=== PATIENT | male | born 1990 | race Caucasian/White ===

== ENCOUNTER 2017-05-15 01:41 | Emergency (ER) | payer BC, OTHER ==
[~2017-05-15] VITALS: Ht 172.7 cm; Wt 70.3 kg
[~2017-05-15 01:41] MED LIST: HYDR1CAP2 PO; SULF1TAB38 PO
--- OUTSIDE RECORDS SUMMARY | 2017-05-15 01:49 | XMS REPORT | Continuity of Care Document ---
Demographics Preferred Language Unknown Marital Status Unknown Lutheran Affiliation Unknown Race Unknown Ethnic Group Unknown Author Author [facility] Address Unknown Phone Unavailable Allergies There is no data. Medications There is no data. Problems Date Dx Coded Attending Type Code Diagnosis Diagnosed By 01/04/2012 524.60 TMJ 01/04/2012 525.9 TOOTH PAIN 01/04/2012 782.3 EDEMA Procedures There is no data. Results There is no data. Encounters ACCT No. Visit Date/Time Discharge Status Pt. Type Provider Facility Loc./Unit Complaint [id number] 01/04/2012 14:28:00 01/04/2012 23:59:59 CLS Outpatient
[2017-05-15 03:10] LABS: BASOPHILS % (AUTO) 0 % (0-10); EOSINOPHILS # (AUTO) 0.1 10^3/uL (0.0-0.3); EOSINOPHILS % (AUTO) 1 % (0-10); HEMATOCRIT 40 % (40-54); HEMOGLOBIN 14.6 G/DL (13.3-17.7); LYMPHOCYTES # (AUTO) 2.3 X 10^3 (1.0-4.0); LYMPHOCYTES % (AUTO) 18 % (12-44); MEAN CORPUSCULAR HEMOGLOBIN 33 PG (25-34); MEAN CORPUSCULAR HGB CONC 37 G/DL (32-36); MEAN CORPUSCULAR VOLUME 88 FL (80-99); MEAN PLATELET VOLUME 10.2 FL (7.4-10.4); MONOCYTES % (AUTO) 8 % (0-12); NEUTROPHILS # (AUTO) 9.1 X 10^3 (1.8-7.8); NEUTROPHILS % (AUTO) 73 % (42-75); PLATELET COUNT 278 10^3/uL (130-400); RED BLOOD COUNT 4.48 10^6/uL (4.35-5.85); RED CELL DISTRIBUTION WIDTH 12.8 % (10.0-14.5); WHITE BLOOD COUNT 12.5 10^3/uL (4.3-11.0)
[2017-05-15 03:35] LABS: ALBUMIN 4.4 GM/DL (3.2-4.5); ALKALINE PHOSPHATASE 67 U/L (40-136); BILIRUBIN,TOTAL 1.1 MG/DL (0.1-1.0); BUN/CREATININE RATIO 13; CALCIUM 9.5 MG/DL (8.5-10.1); CARBON DIOXIDE 24 MMOL/L (21-32); CHLORIDE 104 MMOL/L (98-107); CREATININE SERUM 0.93 MG/DL (0.60-1.30); GFR ESTIMATED > 60; GLUCOSE 101 MG/DL (70-105); POTASSIUM 3.5 MMOL/L (3.6-5.0); SODIUM 138 MMOL/L (135-145); TOTAL PROTEIN 6.7 GM/DL (6.4-8.2)
[2017-05-15 03:51] LABS: ALANINE AMINOTRANSFERASE 19 U/L (0-55)
[2017-05-15] MEDS ORDERED: KETOROLAC 30 MG/ML VIAL IVP STA (04:07)
[2017-05-15] MEDS ORDERED: CLINDAMYCIN 900 MG/50 ML IVPB 50 ML IV ONE (04:15)
[2017-05-15] MEDS ORDERED: TETANUS,DIPTH,PERTUSS P/F (BOOSTRIX) 0.5 ML VIAL IM ONE (04:15)
[2017-05-15] MEDS ORDERED: NAPR-915 PO (04:19)
[2017-05-15] MEDS ORDERED: LACT1CAP8 PO (04:19)
[2017-05-15] MEDS ORDERED: CLIN300C11 PO (04:19)
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
[2017-05-15 05:21] VITALS: BP 131/92
--- NOTE | 2017-05-15 06:39 | Diagnostic Imaging Report ---
INDICATION: Right hand swelling Three views of the right hand show no fracture, dislocation or radiopaque foreign object. IMPRESSION: Negative right hand Dictated by: Dictated on workstation # [id number]
== END 2017-05-15 05:18 | disposition home or self-care (01) ==
LOC: EDUNIT# 01:41 → ER 01:45
DX: L03.113 Cellulitis of right upper limb (principal); F17.210 Nicotine dependence, cigarettes, uncomplicated; Z87.19 Personal history of other diseases of the digestive system; Z23 Encounter for immunization
CPT/HCPCS: 36415; 73130; 80053; 83605; 85025; 87040; 90471; 90715; 96365; 96375

== ENCOUNTER 2020-07-01 18:30 | Observation (INO) | payer SELFPAY ==
[~2020-07-01] VITALS: Ht 170 cm; Wt 69.5 kg
[~2020-07-01 18:30] MED LIST changes: +CLIN300C12 PO; +LACT1CAP8 PO; +NAPR-915 PO
[2020-07-01 18:58] LABS: BILIRUBIN,URINE NEGATIVE (NEGATIVE); CLARITY,URINE CLEAR; COLOR,URINE YELLOW; GLUCOSE, URINE (UA) NEGATIVE (NEGATIVE); KETONES,URINE 3+ (NEGATIVE); LEUKOCYTE ESTERASE ,URINE NEGATIVE (NEGATIVE); NITRITE,URINE NEGATIVE (NEGATIVE); PH,URINE 6.5 (5-9); PROTEIN,URINE NEGATIVE (NEGATIVE)
[2020-07-01 18:58] LABS: BASOPHILS % (AUTO) 0 % (0-10); EOSINOPHILS % (AUTO) 0 % (0-10); HEMATOCRIT 42 % (40-54); HEMOGLOBIN 15.3 g/dL (13.3-17.7); LYMPHOCYTES # (AUTO) 1.4 10^3/uL (1.0-4.0); LYMPHOCYTES % (AUTO) 16 % (12-44); MEAN CORPUSCULAR HEMOGLOBIN 33 pg (25-34); MEAN CORPUSCULAR HGB CONC 37 g/dL (32-36); MEAN CORPUSCULAR VOLUME 90 fL (80-99); MEAN PLATELET VOLUME 10.2 fL (9.0-12.2); MONOCYTES # (AUTO) 0.8 10^3/uL (0.0-1.0); MONOCYTES % (AUTO) 9 % (0-12); NEUTROPHILS # (AUTO) 6.5 10^3/uL (1.8-7.8); NEUTROPHILS % (AUTO) 74 % (42-75); PLATELET COUNT 302 10^3/uL (130-400); WHITE BLOOD COUNT 8.8 10^3/uL (4.3-11.0)
[2020-07-01 19:04] LABS: BACTERIA,URINE TRACE /HPF; HYALINE CASTS, URINE 0-2 /LPF; SQUAMOUS EPITHELIAL CELL,UR RARE /HPF
[2020-07-01 19:07] LABS: ALBUMIN 4.9 GM/DL (3.2-4.5); CHLORIDE 102 MMOL/L (98-107); POTASSIUM 3.5 MMOL/L (3.6-5.0); SODIUM 136 MMOL/L (135-145)
[2020-07-01 19:08] LABS: AMPHETAMINE SCREEN, URINE POSITIVE (NEGATIVE); BARBITURATE SCREEN URINE NEGATIVE (NEGATIVE); BENZODIAZEPINES SCREEN URINE NEGATIVE (NEGATIVE); CANNABINOID SCREEN, URINE NEGATIVE (NEGATIVE); COCAINE SCREEN URINE NEGATIVE (NEGATIVE); METHADONE STAT NEGATIVE (NEGATIVE); METHAMPHETAMINE SCREEN URINE S POSITIVE (NEGATIVE); OPIATE SCREEN URINE NEGATIVE (NEGATIVE); OXYCODONE STAT NEGATIVE (NEGATIVE); PROPOXYPHENE STAT NEGATIVE (NEGATIVE); TRICYCLIC ANTIDEPRESSANTS SCRE NEGATIVE (NEGATIVE)
[2020-07-01 19:10] LABS: GLUCOSE 95 MG/DL (70-105); TOTAL PROTEIN 7.7 GM/DL (6.4-8.2)
[2020-07-01 19:11] LABS: BILIRUBIN,TOTAL 1.8 MG/DL (0.1-1.0); CARBON DIOXIDE 21 MMOL/L (21-32)
[2020-07-01 19:13] LABS: ALKALINE PHOSPHATASE 88 U/L (40-136)
[2020-07-01 19:16] LABS: ALANINE AMINOTRANSFERASE 33 U/L (0-55); SALICYLATE < 5.0 MG/DL (5.0-20.0)
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
[2020-07-01 19:36] LABS: TSH (THYROID ANALYZER) 1.85 UIU/ML (0.35-4.94)
[2020-07-01 19:49] LABS: BUN/CREATININE RATIO 8; CREATININE SERUM 1.19 MG/DL (0.60-1.30); GFR ESTIMATED > 60
[2020-07-01 19:50] LABS: ACETAMINOPHEN < 10 UG/ML (10-30)
[2020-07-01] MEDS ORDERED: D5 1/2 NS W/KCL 20 MEQ/L 1,000 ML IV ONE (21:33)
[2020-07-01] MEDS ORDERED: 1/2 NS IV SOLUTION 1,000 ML IV PRN (21:45)
[2020-07-01] MEDS ORDERED: D5 1/2 NS 1000 ML IV SOLUTION 1,000 ML IV PRN (21:45)
[2020-07-01] MEDS ORDERED: ONDANSETRON 4 MG (ZOFRAN) ORAL DISSOLVE TAB SL PRN (21:45)
[2020-07-01] MEDS ORDERED: LORazepam INJ 2 MG/ML (ATIVAN) VIAL IM/IV PRN (21:45)
[2020-07-01] MEDS ORDERED: LORazepam 1 MG (ATIVAN) TAB PO PRN (21:45)
[2020-07-01] MEDS ORDERED: SENNA W/DOCUSATE (SENOKOT S) TABLET PO PRN (21:45)
[2020-07-01] MEDS ORDERED: ONDANSETRON 4 MG/2 ML (SDV) Z0FRAN IV PRN (21:45)
[2020-07-01] MEDS ORDERED: ANTACID SUSP 30 ML UDC (MYLANTA) PO PRN (21:45)
[2020-07-01] MEDS: D5 1/2 NS W/KCL 20 MEQ 1000 ML IV SCH (21:49)
[2020-07-01] MEDS: LORazepam INJ 2 MG/ML (ATIVAN) VIAL IV PRN (21:49)
[2020-07-02] MEDS: LORazepam INJ 2 MG/ML (ATIVAN) VIAL IV PRN (00:08)
[2020-07-02 03:57] LABS: BASOPHILS % (AUTO) 0 % (0-10); EOSINOPHILS # (AUTO) 0.1 10^3/uL (0.0-0.3); EOSINOPHILS % (AUTO) 1 % (0-10); HEMATOCRIT 42 % (40-54); HEMOGLOBIN 14.6 g/dL (13.3-17.7); LYMPHOCYTES # (AUTO) 2.2 10^3/uL (1.0-4.0); LYMPHOCYTES % (AUTO) 30 % (12-44); MEAN CORPUSCULAR HEMOGLOBIN 32 pg (25-34); MEAN CORPUSCULAR HGB CONC 35 g/dL (32-36); MEAN CORPUSCULAR VOLUME 92 fL (80-99); MEAN PLATELET VOLUME 10.4 fL (9.0-12.2); MONOCYTES # (AUTO) 0.9 10^3/uL (0.0-1.0); MONOCYTES % (AUTO) 12 % (0-12); NEUTROPHILS # (AUTO) 4.1 10^3/uL (1.8-7.8); NEUTROPHILS % (AUTO) 56 % (42-75); PLATELET COUNT 262 10^3/uL (130-400); WHITE BLOOD COUNT 7.2 10^3/uL (4.3-11.0)
[2020-07-02 04:20] LABS: ALBUMIN 4.2 GM/DL (3.2-4.5); CHLORIDE 108 MMOL/L (98-107); POTASSIUM 3.9 MMOL/L (3.6-5.0); SODIUM 137 MMOL/L (135-145)
[2020-07-02 04:21] LABS: CALCIUM 8.9 MG/DL (8.5-10.1)
[2020-07-02 04:22] LABS: GLUCOSE 116 MG/DL (70-105); TOTAL PROTEIN 6.7 GM/DL (6.4-8.2)
[2020-07-02 04:24] LABS: BILIRUBIN,TOTAL 1.6 MG/DL (0.1-1.0); CARBON DIOXIDE 17 MMOL/L (21-32)
[2020-07-02 04:26] LABS: ALKALINE PHOSPHATASE 77 U/L (40-136); GFR ESTIMATED > 60
[2020-07-02 04:27] LABS: BUN/CREATININE RATIO 9
[2020-07-02 04:29] LABS: ALANINE AMINOTRANSFERASE 26 U/L (0-55)
[2020-07-02] MEDS: D5 1/2 NS W/KCL 20 MEQ 1000 ML IV SCH ×2 (05:09→11:00)
[2020-07-02] MEDS ORDERED: POTASSIUM CL 10MEQ/50ML IVPB 50 ML IV SCH (06:00)
[2020-07-02] MEDS ORDERED: KCL 20 MEQ TAB (K-DUR) PO SCH (06:00)
[2020-07-02] MEDS ORDERED: MAGNESIUM 1 GM/100 ML IVPB 100 ML IV SCH (06:00)
[2020-07-02 06:08] LABS: PHOSPHORUS 4.4 MG/DL (2.3-4.7)
[2020-07-02 06:10] LABS: MAGNESIUM 2.2 MG/DL (1.6-2.4)
[2020-07-02] MEDS ORDERED: THIAMINE 100 MG (VITAMIN B-1) TAB PO SCH (07:00)
[2020-07-02] MEDS ORDERED: MULTIVIT W/MINERALS TAB (THERAGRAN M) PO SCH (07:00)
--- NOTE | 2020-07-02 08:53 | History & Physical-Hospitalist ---
History of Present Illness HPI/Chief Complaint Pt is a 29yoCM with a PMH of alcohol abuse and illicit drug abuse who presented to the ER due to hearing voices. He states he came in because his "life was being threatened." When I asked who was threatening it he said " no one." When I asked if he was thinking of hurting himself he then agreed. He denied any plan or previous attempt at suicide. He has never heard voices before but states he is now and they're making him think bad things. He also reports that he drinks to "excess" but will not quantity the amount. He states his last drink for 4-5 days ago. His alcohol level was 13 on arrival though and when confronted with the fact that this is not consistent with drinking 5 days ago he did not acknowledge me. He also states that he smokes marijuana and meth. Source: patient Date Seen 07/02/20 Time Seen by a Provider: 08:48 Attending Physician Shreya Rincon MD PCP No,Local Physician Referring Physician Date of Admission July 01, 2020 at 19:59 Home Medications & Allergies Home Medications Reviewed patient Home Medication Reconciliation performed by pharmacy medication reconciliations fresh foods technician and/or nursing. Patients Allergies have been reviewed. Allergies Allergies Coded Allergies No Known Drug Allergies (Verified03/07/09) Patient Social History Tobacco Use?: Yes Tobacco type used: Cigarettes (1ppd) Smoking Status: Current Everyday Smoker Substance use?: Yes Substance type: Methamphetamine, Marijuana Alcohol Use?: Yes Alcohol Frequency: Daily Pt stated abuse/neglect: No Immunizations Up To Date Influenza Vaccine Up-to-Date: No; Not Current Tetanus Booster (TDap): Unknown Current Status Communicates: Verbally Primary Language: Pashto Family Medical History Family Hx: SOCIAL HISTORY: -ETOH--HEAVY, DAILY USE--DRINKS AT LEAST 6-8 BEERS PLUS "1/3 BOTTLE" OF HARD LIQUOR EVERY DAY -DRUGS--THC, METHAMPHETAMINES, ALSO COCAINE AND CRACK--STATES HE SMOKES THEM. DENIES IV USE -SMOKES 1 PPD PAST SURGICAL HISTORY: -LEFT ELBOW FRACTURE/ORIF -LEFT WRIST FRACTURE/ORIF Father- Colorectal cancer Review of Systems Constitutional: No chills, No fever EENTM: no symptoms reported Respiratory: No cough, No short of breath Cardiovascular: No chest pain, No palpitations Gastrointestinal: No abdominal pain, No constipation, No diarrhea, No nausea, No vomiting Genitourinary: no symptoms reported Musculoskeletal: no symptoms reported Skin: no symptoms reported Psychiatric/Neurological: See HPI Physical Exam Physical Exam Vital Signs Vital Signs - First Documented 07/01/20 18:53 Temp 35.7 Pulse 110 Resp 20 B/P (MAP) 150/85 (106) Pulse Ox 100 O2 Delivery Room Air Capillary Refill : Less Than 3 Seconds Height, Weight, BMI Height: 5'8" Weight: 155lbs. oz. 70.026875me; 23.21 BMI Method:Stated General Appearance: No Apparent Distress, WD/WN, Thin HEENT: PERRL/EOMI, Moist Mucous Membranes Neck: Normal Inspection, Supple Respiratory: Lungs Clear, No Accessory Muscle Use, No Respiratory Distress Cardiovascular: Regular Rate, Rhythm, No Murmur Gastrointestinal: Normal Bowel Sounds, Non Tender, Soft Extremity: Normal Capillary Refill, No Calf Tenderness, No Pedal Edema Neurologic/Psychiatric: Alert, Oriented x3 (evasive with some answers, linear thought pattern), Normal Mood/Affect, Other Results Results/Procedures Labs Laboratory Tests 07/01/20 18:45 07/01/20 18:50 07/02/20 03:30 Patient resulted labs reviewed. Imaging: Reviewed Imaging Report Assessment/Plan Admission Diagnosis Suicidal Ideation Admission Status: Observation Assessment and Plan Suicidal Ideation Does not have plan but still hearing voices Will need Mental Health Screen clinical services professional consulted, appreciate recs Alcohol abuse Methamphetamine abuse marijuana abuse Unsure when his actual last drink was Continue on CIWA protocol Encouraged cessation SHAVONNE AKERS MD July 02, 2020 08:53
[2020-07-02] MEDS ORDERED: MAGNESIUM OXIDE (MAG-OX)400 MG TAB PO SCH (09:00)
[2020-07-02] MEDS ORDERED: FOLIC ACID 1 MG TAB PO SCH (09:00)
[2020-07-02] MEDS ORDERED: IBUP-2185 PO (09:10)
--- NOTE | 2020-07-02 14:38 | Discharge Summary ---
Diagnosis/Chief Complaint Date of Admission July 01, 2020 at 19:59 Date of Discharge Discharge Date: July 02, 2020 Admission Diagnosis Suicidal Ideation Primary Care No,Local Physician Discharge Summary Discharge Physical Exam Allergies: Coded Allergies: No Known Drug Allergies (Verified , 03/07/09) Vitals & I&Os Vital Signs Date Time Temp Pulse Resp B/P (MAP) Pulse Ox O2 Delivery O2 Flow Rate FiO2 07/02/20 14:00 86 120/85 (97) 95 Room Air 07/02/20 12:00 36.6 07/01/20 21:20 20 General Appearance: No Apparent Distress, Thin Cardiovascular: Regular Rate, Rhythm, No Murmur Gastrointestinal: Normal Bowel Sounds, Soft Neurologic/Psychiatric: Alert, Oriented x3 Hospital Course Pt was admitted due to suicidal ideation with auditory hallucinations. This is a new issue for him and he has no history of psychiatric problems. His mother suffers from bipolar disorder or schizophrenia. He came to the hospital for evaluation given the persistent invasive thoughts. He was admitted for observation and screen by mental health services who recommended inpatient admission. hr shared services consultant was consulted and assisted with transfer. He was accepted by Dr Turk at [facility]. Labs (last 24 hrs) Laboratory Tests 07/01/20 18:45: White Blood Count 8.8, Red Blood Count 4.63, Hemoglobin 15.3, Hematocrit 42, Mean Corpuscular Volume 90, Mean Corpuscular Hemoglobin 33, Mean Corpuscular Hemoglobin Concent 37H, Red Cell Distribution Width 12.6, Platelet Count 302, Mean Platelet Volume 10.2, Immature Granulocyte % (Auto) 0, Neutrophils (%) (A uto) 74, Lymphocytes (%) (Auto) 16, Monocytes (%) (Auto) 9, Eosinophils (%) (Auto) 0, Basophils (%) (Auto) 0, Neutrophils # (Auto) 6.5, Lymphocytes # (Auto) 1.4, Monocytes # (Auto) 0.8, Eosinophils # (Auto) 0.0, Basophils # (Auto) 0.0, Immature Granulocyte # (Auto) 0.0, Prothrombin Time 14.0, INR Comment 1.0, Activated Partial Thromboplast Time 29 07/01/20 18:50: Urine Color YELLOW, Urine Clarity CLEAR, Urine pH 6.5, Urine Specific [place] 1.010L, Urine Protein NEGATIVE, Urine Glucose (UA) NEGATIVE, Urine Ketones 3+H, Urine Nitrite NEGATIVE, Urine Bilirubin NEGATIVE, Urine Urobilinogen 0.2, Urine Leukocyte Esterase NEGATIVE, Urine RBC (Auto) NEGATIVE, Urine RBC NONE, Urine WBC NONE, Urine Squamous Epithelial Cells RARE, Urine Crystals NONE, Urine Bacteria TRACE, Urine Casts PRESENT, Urine Hyaline Casts 0-2H, Urine Mucus SMALLH, Urine Culture Indicated NO, Sodium Level 136, Potassium Level 3.5L, Chloride Level 102, Carbon Dioxide Level 21, Anion Gap 13, Blood Urea Nitrogen 10, Creatinine 1.19, Estimat Glomerular Filtration Rate > 60, BUN/Creatinine Ratio 8, Glucose Level 95, Calcium Level 10.0, Corrected Calcium , Total Bilirub in 1.8H, Aspartate Amino Transf (AST/SGOT) 32, Alanine Aminotransferase (ALT/SGPT) 33, Alkaline Phosphatase 88, Total Protein 7.7, Albumin 4.9H, TSH [place] Testing 1.85, Salicylates Level < 5.0L, Urine Opiates Screen NEGATIVE, Urine Oxycodone Screen NEGATIVE, Urine Methadone Screen NEGATIVE, Urine Propoxyphene Screen NEGATIVE, Acetaminophen Level < 10L, Urine Barbiturates Screen NEGATIVE, Ur Tricyclic Antidepressants Screen NEGATIVE, Urine Phencyclidine Screen NEGATIVE, Urine Amphetamines Screen POSITIVEH, Urine Methamphetamines Screen POSITIVEH, Urine Benzodiazepines Screen NEGATIVE, Urine Cocaine Screen NEGATIVE, Urine Cannabinoids Screen NEGATIVE, Serum Alcohol 13H 07/01/20 20:20: SARS-CoV-2 RNA (RT-PCR) Not Detected 07/02/20 03:30: White Blood Count 7.2, Red Blood Count 4.54, Hemoglobin 14.6, Hematocrit 42, Mean Corpuscular Volume 92, Mean Corpuscular Hemoglobin 32, Mean Corpuscular Hemoglobin Concent 35, Red Cell Distribution Width 13.0, Platelet Count 262, Mean Platelet Volume 10.4, Immature Granulocyte % (Auto) 0, Neutrophils (%) (Auto) 56, Lymphocytes (%) (Auto) 30, Monocytes (%) (Auto) 12, Eosinophils (%) (Auto) 1, Basophils (%) (Auto) 0, Neutrophils # (Auto) 4.1, Lymphocytes # (Auto) 2.2, Monocytes # (Auto) 0.9, Eosinophils # (Auto) 0.1, Basophils # (Auto) 0.0, Immature Granulocyte # (Auto) 0.0, Sodium Level 137, Potassium Level 3.9, [place]lo [place] Level 108H, Carbon Dioxide Level 17L, Anion Gap 12, Blood Urea Nitrogen 9, Creatinine 1.00, Estimat Glomerular Filtration Rate > 60, BUN/Creatinine Ratio 9, Glucose Level 116H, Calcium Level 8.9, Corrected Calcium 8.7, Total Bilirubin 1.6H, Aspartate Amino Transf (AST/SGOT) 24, Alanine Aminotransferase (ALT/SGPT) 26, Alkaline Phosphatase 77, Total Protein 6.7, Albumin 4.2, Phosphorus Level 4.4, Magnesium Level 2.2 Patient resulted labs reviewed. Imaging: Reviewed Imaging Report Discussion & Recommendations Discharge Planning: >30 minutes discharge planning Discharge Home Medications: Active Scripts Active Reported Ibuprofen 200 Mg Capsule 400-600 Mg PO Q8H PRN Instructions to patient/family Please see electronic discharge instructions given to patient. SHAVONNE AKERS MD July 02, 2020 14:38
[2020-07-02 15:35] VITALS: BP 120/85
[2020-07-02 16:32] VITALS: BP 120/85
== END 2020-07-02 15:34 ==
LOC: EDUNIT# 18:30 → ER 18:32 → ICU 19:59
PROVIDERS: ADMIT Internal Medicine; ATTEND Internal Medicine
DX: F29 Unspecified psychosis not due to a substance or known physiological condition (principal); R45.851 Suicidal ideations; F10.10 Alcohol abuse, uncomplicated; F15.90 Other stimulant use, unspecified, uncomplicated; F17.210 Nicotine dependence, cigarettes, uncomplicated; Z79.2 Long term (current) use of antibiotics; Z79.1 Long term (current) use of non-steroidal anti-inflammatories (NSAID); Z79.899 Other long term (current) drug therapy; Z87.81 Personal history of (healed) traumatic fracture; Z80.0 Family history of malignant neoplasm of digestive organs; Z98.890 Other specified postprocedural states; Z20.822 Contact with and (suspected) exposure to COVID-19
CPT/HCPCS: 80053 ×2; 80306; 81000; 83735; 84100; 84443; 85025 ×2; 85610; 85730; 87081; 93005; 99285; G0480 ×3; U0002; 36415; 80320; 80329; 87635; G0378